=== PATIENT | female | born 1985 | race Caucasian/White ===

== ENCOUNTER → 2019-10-22 | Outpatient (CLI) | payer BC | LOC: COL.LAB 10:53 | DX: N91.2 Amenorrhea, unspecified (principal) ==

== ENCOUNTER 2021-01-27 19:41 | Inpatient (IN) | payer BC ==
[2021-01-27] VITALS (11 sets, daily range): BP systolic 122–156; BP diastolic 60–94; PULSE 79–112; TEMP 98.4
[~2021-01-27] VITALS: Ht 162.6 cm; Wt 68.2 kg
--- NOTE | 2021-01-27 20:00 | NUR ---
1999- PATIENT AND SPOUSE AMBULATORY TO THE UNIT. PATIENT IS A AT 40.5, PATIENT OF DR. ROBERTSON. PATIENT REPORTS HAVING CONTRACTIONS ON AND OFF FOR THE PAST DAY BUT AROUND 1900 THEY STARTED TO BE ABOUT 5 MINUTES APART AND MUCH MORE PAINFUL. 2004- EFM AND TOCO ON AND TRACING. VITALS TAKEN, ASSESSMENT COMPLETED. PLAN OF CARE DISCUSSED WITH PATIENT. PATIENT VERBALIZED UNDERSTANDING. 2014- SVE /, CALLED PHYSICIAN, SEE PHSYICIAN NOTIFIATION.
[2021-01-27] MEDS ORDERED: PRENATAL TABLET PO (21:22)
[2021-01-27] MEDS ORDERED: PRIL40 PO (21:22)
[2021-01-27] MEDS ORDERED: NATURAL IRON65 MG (21:22)
[2021-01-27 21:23] LABS: BASO % 0.1 % (0.0-2.0); GRAN % 85.2 % (42.2-75.2); HEMATOCRIT 42.5 % (37.0-47.0); HEMOGLOBIN 14.8 g/dl (12.5-16.0); LYMPH % 9.5 % (20.0-51.0); MEAN CELL VOLUME 87 fl (80.0-100.0); MEAN CORPUSCULAR HEMOGLOBIN 30 pg (27.0-31.0); MEAN CORPUSCULAR HGB CONC 35 g/dl (33.0-37.0); MEAN PLATELET VOLUME 10.9 fl (7.4-10.4); MONO % 4.7 % (1.7-9.3); PLATELET COUNT 224 K/mm3 (130-400); RED BLOOD COUNT 4.88 M/mm3 (4.10-5.30); REDCELL DISTRIBUTION WIDTH-CV 13.3 % (11.5-14.5)
[2021-01-28] VITALS (57 sets, daily range): BP systolic 99–166; BP diastolic 55–106; PULSE 71–118; TEMP 97.5–99.1
--- NOTE | 2021-01-28 | NUR ---
0000- THIS RN TO BEDSIDE TO CHECK ON PATIENT AND REPOSITION PATIENT. PATIENT DENIES NEEDS AND IS STILL COMFORTABLE WITH EPIDURAL. 0003- THIS RN HELPS PATIENT MOVE FROM WR TO WL POSITION. FHR DECELERATING INTO 115 RANGE FROM BASELINE OF 140. HELP PATIENT TO LL POSITION WHEN THIS HAPPENS. FHR IN THE 90S. 0004- PATIENT REPOSITIONED INTO THE WR POSITION AND FLUIDS OPENED UP TO RUN IN. FHR 80S. 0005- PATIENT POSITIONED INTO THE RL POSITION. FHR IN THE 90-100 AND TRENDING UPWARD AT THIS TIME. THIS RN REMAINS AT BEDSIDE. DISCUSSED CHECKING PATIENT AND PATIENT AGREES. 0008- SVE /2. FHR IN THE 140S AND STAYING THERE AT THIS TIME. 0010- PATIENT REPOSITIONED INTO SINA POSITION. PATIENT AND FHR TOLERATING POSITION AT THIS TIME. DISCUSSED PLAN OF CARE. PATIENT DENIES NEEDS AT THIS TIME. CALL LIGHT WITHIN REACH.
--- NOTE | 2021-01-28 06:30 | NUR ---
This RN receives bedside report from AURELIO Ybarra. Patient resting and no needs at this time. Plan of care discussed. 0700: SVE /-1 0825: Dr. Foote at bedside assessing patient and FHR strip. 0826: SVE per bertha 7-/0. AROM done at this time with clear fluid noted. Plan of care discussed. Patient repositioned. 0835: Dr. Daniel at nurses station reviewing FHR strip and orders to start Pitocin at this time. Plan of care discussed with patient to start Pitocin for augmentation of labor. Patient agrees with plan. Pitocin started at 2 mu/hr per protocol.
--- NOTE | 2021-01-28 09:35 | NUR ---
Recurrent late/variables decelerations noted. SVE 8-9/90/0. Patient repositioned. 1035: SVE 10/100/0. Dr. Daniel updated. Orders us to start pushing. Dr. Goyal updated as back up physician. 1057: Pushing instructions discussed with patient. Patient begins to push with each contractions. 1110: Variable/late deceleration noted and patient continues to push with contractions. 1157: FHR baseline increased to 155-165 bpm with variables/late decelerations noted. Dr. Goyal called and notified and states on his way. 1210: Dr. Goyal at [facility] assessing progress and FHR strip. Patient continues to push with contractions. 1220: Dr. Goyal discusses the possible need for vacuum assisted delivery and patient/spouse agree with plan. Risks discussed. 1225: Dr. Goyal informs patient on the need for vacuum. 1228: Vacuum applied to 's head. 1229: Patient pushing with contraction and traction applied to vacuum per Dr. Goyal. Pop-off x1. 1231: Vaccum applied and patient pushed with contraction. Traction applied to vacuum per physician. 1232: Vaccum assisted vaginal delivery of viable male infant. Head followed by body. bulbed syringed and onto patient's abdomen. Delvin, RN assumes care of infant at this time. Cord clamped and cut by physician. Cord blood obtained and to lab. Physician obtains cord gases. 1238: Spontaneous delivery of placenta. Pitocin bolus started per protocol. Fundal massage done at this time. Bleeding within normal limits. Dr. Goyal begins to repair laceration. Fundal massage done/firm. Bleeding minimal. Pericare done and patient repositioned. Ice pack to perineum. Plan of care discussed.
--- NOTE | 2021-01-28 16:30 | NUR ---
Patient sitting on edge of bed, epidural catheter removed and patient tolerates well. Patient assisted to wheelchair and assisted to toilet, voids at this time. Pericare done, new underwear/icepack on. Patient to new room via wheelchair and oriented to . Plan of care discussed.
[2021-01-28] MEDS ORDERED: MOTRIN 800800 MG/TAB PO (17:06)
[2021-01-29 03:30] VITALS: BP 135/80; PULSE 92; TEMP 97.9
[2021-01-29 06:41] LABS: HEMATOCRIT 34.8 % (37.0-47.0); HEMOGLOBIN 11.8 g/dl (12.5-16.0)
[2021-01-29 08:00] VITALS: BP 125/74; PULSE 85; TEMP 98.4
--- NOTE | 2021-01-29 09:21 | NUR ---
Initial visit; Parents thanked Privacy Specialist for looking in on them and offering congratulations and God's blessings. Privacy Specialist thanked family for choosing [facility].
[2021-01-29 16:03] VITALS: BP 133/84; PULSE 96; TEMP 98.2
[2021-01-29 20:30] VITALS: BP 138/84; PULSE 75; TEMP 98.1
[2021-01-30 09:15] VITALS: BP 144/73; PULSE 89; TEMP 97.8
== END 2021-01-30 12:40 | disposition home or self-care (01) | DRG 807 ==
LOC: LDRO 19:41 → LDR 20:27 → OB 01-28 16:30
PROVIDERS: Obstetrics & Gynecology; ADMIT Obstetrics & Gynecology
PROC: 10D07Z6 Extraction of Products of Conception, Vacuum, Via Natural or Artificial Opening (ICD-10-PCS; principal; 2021-01-28)
PROC: 0KQM0ZZ Repair Perineum Muscle, Open Approach (ICD-10-PCS; 2021-01-28)
DX: O99.02 Anemia complicating childbirth (principal); Z37.0 Single live birth; D64.9 Anemia, unspecified; O76 Abnormality in fetal heart rate and rhythm complicating labor and delivery; O70.1 Second degree perineal laceration during delivery; Z3A.40 40 weeks gestation of pregnancy; Z23 Encounter for immunization
CPT/HCPCS: J2590; J7120